=== PATIENT | male | born 1975 | race Caucasian/White ===

== ENCOUNTER 2017-10-29 11:31 | Inpatient (IN) ==
--- NOTE | 2017-10-29 11:43 | Emergency Department Note ---
Disposition Clinical Impression: Cellulitis Qualifiers: Site of cellulitis: extremity Site of cellulitis of extremity: lower extremity Laterality: left Qualified Code(s): L03.116 - Cellulitis of left lower limb Left knee pain Qualifiers: Chronicity: acute Qualified Code(s): M25.562 - Pain in left knee Disposition: Admitted As Inpatient Condition: Good Time of Disposition: 15:37 Extremity Problem HPI - General Chief complaint: ED Extremity Problem,Nontraumatic Stated complaint: Left Knee Pain Time Seen by Provider: 10/29/17 11:37 Source: patient, family Mode of arrival: ambulatory Limitations: no limitations Nursing Notes Reviewed: Yes Vital Signs Reviewed: Yes - History of Present Illness HPI Narrative: Patient is a 41-year-old male with past medical history of previous shoulder surgeries, hypertension, A. fib. She presents today due to left knee pain, left lower extremity swelling and redness. Patient states that 1-2 days ago, he started having pain in the left knee. 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 Denies any previous history of any pain in that lower extremity. Over the next 24 hours, he started having additional swelling, additional pain. She made a small incision over the swelling aspect and Monday he got blood and white fluid out that he thought was pus. After that, he has noticed additional swelling down to the calf and redness down to the calf. Denies any current calf pain. Denies any history of any DVTs. Denies any other fevers, nausea, vomiting, diarrhea, abdominal pain, chest pain, shortness of breath, stiffness of the left knee joint, numbness, tingling, weakness. Pain Scale: 10 - Related Data Home Medications Medication Instructions Recorded Confirmed Chlordiazepoxide [Librium] 5 mg PO DAILY 10/29/17 10/29/17 Lisinopril [Zestril] 20 mg PO DAILY 10/29/17 10/29/17 Allergies Allergy/AdvReac Type Severity Reaction Status Date / Time No Known Allergies Allergy Verified 10/29/17 14:57 All systems ED: reviewed and negative except as stated. Constitutional: Denies: fever Cardiovascular: Denies: chest pain Respiratory: Denies: cough, dyspnea Gastrointestinal: Denies: abdominal pain, nausea, vomiting, diarrhea Genitourinary: Denies: urgency, dysuria Musculoskeletal: Reports: arthralgia Integumentary: Reports: rash, other Neurological: Denies: headache, weakness, numbness, paresthesias Past Medical History - Past Medical History Attestation: Yes The following information was validated with the patient. Source: patient Medical history: Reports: atrial fibrillation, hypertension Psychiatric history: Reports: no psych history - Social History Smoking Status: Never smoker Smokeless Tobacco Status: No Alcohol use: Reports: none Drug use: Reports: none Physical Exam - General Limitations: no limitations General appearance: alert, in distress - Head Head exam: atraumatic, normocephalic, normal inspection - Eye Eye exam: Present: normal appearance, PERRL, EOMI - ENT ENT exam: normal exam, normal oropharynx, mucous membranes moist - Neck Neck exam: Present: normal inspection, full ROM, trachea midline - Chest Chest inspection: Present: normal inspection, symmetric chest wall rise - Respiratory Respiratory exam: Present: normal lung sounds bilaterally - Cardiovascular Cardiovascular exam: Present: regular rate, normal rhythm, normal heart sounds - Abdominal Exam Abdominal exam: Present: soft, Non-Tender. Absent: tenderness, distention, guarding, rebound, rigidity - Extremities Exam Extremities exam: Present: other (Erythema of the left anterior knee down to mid carlson, significant swelling of the infrapatellar region, small 0.5 cm scar incision just inferior to inferior aspect of the patella where patient made an incision; left foot more than right foot. +2 over 4 posterior tibial pulses bilaterally. Decreased +1 over 4 dorsalis pedis pulses bilaterally.) - Neurological Exam Neurological exam: Present: alert, oriented X3 - Psychiatric Psychiatric exam: Present: normal affect, normal mood - Skin Skin exam: Present: warm, dry Course Course Narrative: ABIs of the LE obtained due to cold left foot. These were normal bilaterally. CTA of the left lower extremity showed no definite opacification of the left dorsalis pedis artery. Cellulitis was seen extending from the left knee into the anterior mid left leg. There is no signs of any osteomyelitis or necrotizing fasciitis. Discussed these results with the patient. He was reevaluated and redness has extended down to his ankle now. We discussed the importance of starting IV antibiotics and admission for further care. He was having agreeable with this plan. Of note, patient had elevated heart rate of 140 on presentation, now in the low 100s. Fluids have been given. Blood cultures also obtained. Lower Extremity CTA 10/29/17 11:55 IMPRESSION: 1. One-vessel runoff to the left ankle with patency of the proximal to mid left plantar artery. No definite opacification of the left dorsalis pedis artery. 2. Findings suggestive of cellulitis extending from the anterior left knee into the anterior mid left leg. No findings of underlying osteomyelitis or necrotizing fasciitis. D/ / Fly Nina MD / Fly Nina MD Interpreting Provider: Fly Nina MD Vital Signs Temperature 98.4 F 10/29/17 11:34 Pulse Rate 146 10/29/17 11:34 Respiratory Rate 20 10/29/17 11:34 Blood Pressure 150/92 10/29/17 11:34 O2 Sat by Pulse Oximetry 98 10/29/17 11:34 Temperature 98.4 F 10/29/17 11:34 Pulse Rate 103 10/29/17 15:24 Respiratory Rate 20 10/29/17 15:24 Blood Pressure 145/105 10/29/17 15:24 O2 Sat by Pulse Oximetry 98 10/29/17 11:34 Oxygen Delivery Oxygen Delivery Room Air Extremity Problem, Nontraumati - MDM Narrative Medical decision making narrative: ABIs of the LE obtained due to cold left foot. These were normal bilaterally. CTA of the left lower extremity showed no definite opacification of the left dorsalis pedis artery. Cellulitis was seen extending from the left knee into the anterior mid left leg. There is no signs of any osteomyelitis or necrotizing fasciitis. Discussed these results with the patient. He was reevaluated and redness has extended down to his ankle now. We discussed the importance of starting IV antibiotics and admission for further care. He was having agreeable with this plan. Of note, patient had elevated heart rate of 140 on presentation, now in the low 100s. Fluids have been given. Blood cultures also obtained. - Medical Records Medical records reviewed: Yes I reviewed the patient's medical records. - Lab Data Lab results reviewed: Yes I reviewed the patient's lab results. Result diagrams: 10/29/17 11:58 10/29/17 11:58 Lab Results 10/29/17 10/29/1710/29/18 Range/Units 11:58 11:58 11:58 WBC 13.5 H (4.3-11.1) K/mcL RBC 4.54 (4.19-5.50) M/mcL Hgb 13.9 (12.9-16.9) g/dL Hct 39.9 (37.5-50.1) % MCV 87.9 (83.0-100.0) fL MCH 30.6 (28.0-33.3) pg MCHC 34.8 (31.6-35.5) g/dL RDW 11.9 (11.5-14.5) % Plt Count 299 (140-400) K/mcL MPV 8.9 L (9.4-12.4) fL Immature Gran % 0.5 (0-4) % Seg Neutrophils % 79.5 % Lymphocytes % 10.6 % Monocytes % 8.0 % Eosinophils % 1.0 % Basophils % 0.4 % Neutrophils # 10.7 H (1.6-8.9) K/mcL Lymphocytes # 1.4 (0.6-4.6) K/mcL Monocytes # 1.1 (0.0-1.3) K/mcL Eosinophils # 0.1 (0.0-0.6) K/mcL Basophils # 0.1 (0.0-0.2) K/mcL ESR 15 H (0-10) mm/hr Sodium 137 (136-145) mEq/L Potassium 4.2 (3.5-5.1) mEq/L Chloride 101 (98-107) mEq/L Carbon Dioxide 28 (23-29) mEq/L BUN 15 (6-20) mg/dL Creatinine 0.80 (0.70-1.30) mg/dL Est GFR ( Amer) > 60 (> 60) Est GFR (Non-Af Amer) > 60 (> 60) BUN/Creatinine Ratio 19 (6-26) Glucose 116 H (70-105) mg/dL Calculated Osmolality 286 (280-300) Lactic Acid (0.5-2.2) mmol/L Calcium 9.4 (8.6-10.3) mg/dL 10/29/17 Range/Units 11:58 WBC (4.3-11.1) K/mcL RBC (4.19-5.50) M/mcL Hgb (12.9-16.9) g/dL Hct (37.5-50.1) % MCV (83.0-100.0) fL MCH (28.0-33.3) pg MCHC (31.6-35.5) g/dL RDW (11.5-14.5) % Plt Count (140-400) K/mcL MPV (9.4-12.4) fL Immature Gran % (0-4) % Seg Neutrophils % % Lymphocytes % % Monocytes % % Eosinophils % % Basophils % % Neutrophils # (1.6-8.9) K/mcL Lymphocytes # (0.6-4.6) K/mcL Monocytes # (0.0-1.3) K/mcL Eosinophils # (0.0-0.6) K/mcL Basophils # (0.0-0.2) K/mcL ESR (0-10) mm/hr Sodium (136-145) mEq/L Potassium (3.5-5.1) mEq/L Chloride (98-107) mEq/L Carbon Dioxide (23-29) mEq/L BUN (6-20) mg/dL Creatinine (0.70-1.30) mg/dL Est GFR ( Amer) (> 60) Est GFR (Non-Af Amer) (> 60) BUN/Creatinine Ratio (6-26) Glucose (70-105) mg/dL Calculated Osmolality (280-300) Lactic Acid 1.4 (0.5-2.2) mmol/L Calcium (8.6-10.3) mg/dL - Radiology Data Radiology results reviewed: Yes I reviewed the patient's radiology results. Lower Extremity CTA 10/29/17 11:55 IMPRESSION: 1. One-vessel runoff to the left ankle with patency of the proximal to mid left plantar artery. No definite opacification of the left dorsalis pedis artery. 2. Findings suggestive of cellulitis extending from the anterior left knee into the anterior mid left leg. No findings of underlying osteomyelitis or necrotizing fasciitis. D/ / Fly Nina MD / Fly Nina MD Interpreting Provider: Fly Nina MD S.B.A.R. - [place] Situation: Demographics, MOA Background: Presenting Complaint, Relevant PMH, Meds, & Allergies Assessment: Vital Signs, Course and respsone to treatment, Exam Concerns, Patient/Family Expectation, Pertinant Lab Results Recommendation: Barrier(s) to disposition, Recommendation based on pending studies, treatments, or consults [place] Report Given to: Dr. Baltazar
[2017-10-29] MEDS ORDERED: *HR* FentaNYL (PF) 100 MCG/2 ML VIAL IVP ONE ×2 (11:55→15:02)
[2017-10-29 12:14] LABS: Basophils % 0.4 %; Hematocrit 39.9 % (37.5-50.1); Hemoglobin 13.9 g/dL (12.9-16.9); Immature Granulocytes % 0.5 % (0-4); Lymphocytes % 10.6 %; Mean Corpuscular HGB Conc 34.8 g/dL (31.6-35.5); Mean Corpuscular Hemoglobin 30.6 pg (28.0-33.3); Mean Corpuscular Volume 87.9 fL (83.0-100.0); Mean Platelet Volume 8.9 fL (9.4-12.4); Platelet Count 299 K/mcL (140-400); Red Blood Count 4.54 M/mcL (4.19-5.50); Red Cell Distribution Width 11.9 % (11.5-14.5); Segmented Neutrophils % 79.5 %
[2017-10-29 12:15] LABS: Basophils # 0.1 K/mcL (0.0-0.2); Eosinophils # 0.1 K/mcL (0.0-0.6); Lymphocytes # 1.4 K/mcL (0.6-4.6); Monocytes # 1.1 K/mcL (0.0-1.3); Neutrophils # 10.7 K/mcL (1.6-8.9)
[2017-10-29 12:37] LABS: BUN/Creatinine Ratio 19 (6-26); Blood Urea Nitrogen 15 mg/dL (6-20); Calcium 9.4 mg/dL (8.6-10.3); Carbon Dioxide 28 mEq/L (23-29); Chloride 101 mEq/L (98-107); Glucose 116 mg/dL (70-105); Osmolality,Calculated 286 (280-300); Potassium 4.2 mEq/L (3.5-5.1); Sodium 137 mEq/L (136-145); eGFR For African Americans > 60 (> 60); eGFR For Non-African Americans > 60 (> 60)
[2017-10-29] MEDS ORDERED: Tdap (Boostrix) Vaccine 0.5 ML SYRINGE IM ONE (13:33)
[2017-10-29] MEDS ORDERED: Piperacillin/Tazobactam 3.375 GM in 0.9 % Sodium Chloride Mini Bag 100 ML IVPB ONE (13:33)
--- NOTE | 2017-10-29 13:33 | Emergency Department Note ---
Disposition Clinical Impression: Cellulitis Qualifiers: Site of cellulitis: extremity Site of cellulitis of extremity: lower extremity Laterality: left Qualified Code(s): L03.116 - Cellulitis of left lower limb Disposition: Home, Self-Care Forms: ED Satisfaction Letter General Adult HPI - General Chief complaint: ED Extremity Problem,Nontraumatic Stated complaint: Left Knee Pain Time Seen by Provider: 10/29/17 11:37 Source: patient, family Mode of arrival: ambulatory Limitations: no limitations - History of Present Illness Pain Scale: 0 - Related Data Allergies Allergy/AdvReac Type Severity Reaction Status Date / Time No Known Allergies Allergy Verified 10/29/17 11:34 Past Medical History - Past Medical History Medical history: Reports: atrial fibrillation, hypertension Psychiatric history: Reports: no psych history - Social History Smoking Status: Never smoker Smokeless Tobacco Status: No Alcohol use: Reports: none Drug use: Reports: none Physical Exam - General Limitations: no limitations General appearance: alert, in distress Course Vital Signs Temperature 98.4 F 10/29/17 11:34 Pulse Rate 146 10/29/17 11:34 Respiratory Rate 20 10/29/17 11:34 Blood Pressure 150/92 10/29/17 11:34 O2 Sat by Pulse Oximetry 98 10/29/17 11:34 Temperature 98.4 F 10/29/17 11:34 Pulse Rate 108 10/29/17 13:27 Respiratory Rate 15 10/29/17 13:27 Blood Pressure 130/84 10/29/17 13:27 O2 Sat by Pulse Oximetry 98 10/29/17 11:34 Oxygen Delivery Oxygen Delivery Room Air Medical Decision Making - Lab Data Result diagrams: 10/29/17 11:58 10/29/17 11:58 Lab Results 10/29/17 10/29/17 10/29/17 Range/Units 11:58 11:58 11:58 WBC 13.5 H (4.3-11.1) K/mcL RBC 4.54 (4.19-5.50) M/mcL Hgb 13.9 (12.9-16.9) g/dL Hct 39.9 (37.5-50.1) % MCV 87.9 (83.0-100.0) fL MCH 30.6 (28.0-33.3) pg MCHC 34.8 (31.6-35.5) g/dL RDW 11.9 (11.5-14.5) % Plt Count 299 (140-400) K/mcL MPV 8.9 L (9.4-12.4) fL Immature Gran % 0.5 (0-4) % Seg Neutrophils % 79.5 % Lymphocytes % 10.6 % Monocytes % 8.0 % Eosinophils % 1.0 % Basophils % 0.4 % Neutrophils # 10.7 H (1.6-8.9) K/mcL Lymphocytes # 1.4 (0.6-4.6) K/mcL Monocytes # 1.1 (0.0-1.3) K/mcL Eosinophils # 0.1 (0.0-0.6) K/mcL Basophils # 0.1 (0.0-0.2) K/mcL ESR 15 H (0-10) mm/hr Sodium 137 (136-145) mEq/L Potassium 4.2 (3.5-5.1) mEq/L Chloride 101 (98-107) mEq/L Carbon Dioxide 28 (23-29) mEq/L BUN 15 (6-20) mg/dL Creatinine 0.80 (0.70-1.30) mg/dL Est GFR ( Amer) > 60 (> 60) Est GFR (Non-Af Amer) > 60 (> 60) BUN/Creatinine Ratio 19 (6-26) Glucose 116 H (70-105) mg/dL Calculated Osmolality 286 (280-300) Lactic Acid (0.5-2.2) mmol/L Calcium 9.4 (8.6-10.3) mg/dL 10/29/17 Range/Units 11:58 WBC (4.3-11.1) K/mcL RBC (4.19-5.50) M/mcL Hgb (12.9-16.9) g/dL Hct (37.5-50.1) % MCV (83.0-100.0) fL MCH (28.0-33.3) pg MCHC (31.6-35.5) g/dL RDW (11.5-14.5) % Plt Count (140-400) K/mcL MPV (9.4-12.4) fL Immature Gran % (0-4) % Seg Neutrophils % % Lymphocytes % % Monocytes % % Eosinophils % % Basophils % % Neutrophils # (1.6-8.9) K/mcL Lymphocytes # (0.6-4.6) K/mcL Monocytes # (0.0-1.3) K/mcL Eosinophils # (0.0-0.6) K/mcL Basophils # (0.0-0.2) K/mcL ESR (0-10) mm/hr Sodium (136-145) mEq/L Potassium (3.5-5.1) mEq/L Chloride (98-107) mEq/L Carbon Dioxide (23-29) mEq/L BUN (6-20) mg/dL Creatinine (0.70-1.30) mg/dL Est GFR ( Amer) (> 60) Est GFR (Non-Af Amer) (> 60) BUN/Creatinine Ratio (6-26) Glucose (70-105) mg/dL Calculated Osmolality (280-300) Lactic Acid 1.4 (0.5-2.2) mmol/L Calcium (8.6-10.3) mg/dL Attestation Statement - Attestation Attestation: I examined this patient and my medical decision-making was reviewed with the Resident Physician. I agree with the documented findings, disposition and treatment plan as described except to the extent set forth below. 41 year old male presents to the ED with coplaints of LLE cellultis. He comes from urgent care and state that he had an abscess area that he lanced with a knife (up to date on tdap) and in the past 24 horus has noticed incresed swelling and redness streaking down his leg. Concerns for cellutlis. ABIs are normal. We will continue wit CTA of the leg and likely admit to medicine for RLE cellulitis. vanc/zosyn for therapy
[2017-10-29] MEDS ORDERED: 0.9 % Sodium Chloride 1,000 ML IVC SCH ×2 (15:15→18:00)
[2017-10-29 17:43] LABS: C-Reactive Protein 14 mg/L (Less than 10)
[2017-10-29] MEDS ORDERED: Naloxone 0.4 MG/ML INJ IVP PRN (17:53)
--- NOTE | 2017-10-29 18:03 | Internal Med History&Physical ---
Date of Encounter: 10/29/17 Time of Encounter: 17:58 Internal Medicine - H&P: HPI Chief complaint: left knee pain Admitted From: Emergency Dept Plans for Post Hospital Care: Home History of present illness: Mr. Mcknight is a 41 year old male hypertension, atrial fibrillation and multiple surgeries for the shoulder in the past. Patient came to emergency room for persistent left knee pain. Patient claims that this is ongoing left-sided knee pain for more than 48 hours. Patient also has bruises and swelling in the same area. In last 24 hours patient's pain has significantly worsened. This was the reason they came to emergency room for further evaluation. Patient denies chest pain, shortness of breath, nausea, vomiting, dizziness and diarrhea. Workup in the emergency room: Patient was evaluated in the emergency room. Baseline labs were drawn. Noted presence of a leukocytosis. Lower extremity CTA was done. No arterial occlusion. But there is a extensive cellulitis noted. No evidence of osteomyelitis/necrotizing fasciitis. Reason for admission: Outpatient failed treatment of cellulitis. Need Intravenous antibiotics. Family history: Noncontributory. Past Med Surg Social Fam HX - Past Medical History Medical history: atrial fibrillation, hypertension Psychiatric history: no psych history - Social History Smoking Status: Never smoker Smokeless Tobacco Status: No Alcohol use: none Drug use: none Internal Medicine - H&P: Meds Chlordiazepoxide [Librium] 5 mg PO DAILY 10/29/17 [History] Lisinopril [Zestril] 20 mg PO DAILY 10/29/17 [History] 3 Allergy/AdvReac Type Severity Reaction Status Date / Time No Known Allergies Allergy Verified 10/29/17 14:57 All Systems PM: A 10-system review of systems was performed and is negative for pertinent findings except as documented above in the HPI. - Constitutional Constitutional: no chills, no fever(s), no night sweats - EENT Eyes: no change in vision, no discharge, no pain, no photophobia Ears: no ear discharge, no ear pain, no tinnitus Nose, mouth and throat: no dysphagia, no nasal discharge, no neck pain, no sore throat - Cardiovascular Cardiovascular ROS IM: no chest pain, no diaphoresis, no dyspnea, no lightheadedness, no palpitations, no syncope - Respiratory Respiratory: no cough, no dyspnea, no wheezing, no excessive phlegm production - Gastrointestinal Gastrointestinal: no abdominal pain, no diarrhea, no hematemesis, no hematochezia, no melena, no nausea, no vomiting - Musculoskeletal Musculoskeletal ROS IM: muscle cramps, no numbness, no tingling Additional comments: Left lower extremity pain/cellulitis - Integumentary Integumentary IM: no rash, no unusual bruising - Neurological Neurological ROS: no confusion, no convulsions, no focal weakness, no numbness, no tingling, no tremor(s) - Hematologic/Lymphatic Hematologic/Lymphatic: no easy bruising - Constitutional Vitals: Temp Pulse Resp BP Pulse Ox 98.3 F 100 16 163/92 96 10/29/17 17:50 10/29/17 17:50 10/29/17 17:50 10/29/17 17:50 10/29/17 17:50 General appearance: Present: A&O X 3, morbidly obese, pleasant, no acute distress, answers questions appropriately - Head Head exam: Present: atraumatic, normocephalic - Eye Eye exam: Present: PERRL, conjuntiva pink, sclera anicteric Pupils: Present: PERRL - Neck Neck exam general surgery: Present: supple, trachea midline. Absent: lymphadenopathy - Respiratory Respiratory exam: Present: CTAB. Absent: accessory muscle use, rales, rhonchi, wheezes - Cardiovascular Cardiovascular exam: Present: RRR, +S1, +S2. Absent: diastolic murmur, gallop, rubs, systolic murmur - GI/Abdominal GI/Abdominal exam: Present: normal bowel sounds, soft, no peritoneal signs. Absent: distended, tenderness - Extremities Exam Extremities exam: Present: warm, radial pulses palpable and symmetrical. Absent : calf tenderness, cyanotic, pedal edema Additional comments: Patient does have a swollen left lower extremity. Noted that patient has a extreme tenderness, left lower extremity. CTA left lower extremity: Negative. - Neurological Exam Neurological exam: Present: CN II-XII intact, oriented X3, no focal deficits. Absent: pronater drift, facial droop, speech deficit - Skin Skin exam: Present: dry, intact Internal Med - H&P Results - Labs CBC & Chem 7: 10/29/17 11:58 10/29/17 11:58 - Assessment and plan (1) Cellulitis Current Visit: Yes Status: Acute Assessment and plan: 41/male Left-sided knee pain. Noted cellulitis. Left CTA lower extremity: Suggestive for cellulitis. Plan: Admit as inpatient. Vancomycin/Zosyn. Resume home medication. Elevation of the leg. I examined this patient in the emergency department room #2. Patient's was at bedside. Plan of care explained to the patient and his . The verbalize understanding. Qualifiers: Site of cellulitis: extremity Site of cellulitis of extremity: lower extremity Laterality: left Qualified Code(s): L03.116 - Cellulitis of left lower limb (2) Left knee pain Current Visit: Yes Status: Acute Assessment and plan: Patient does have a left acute knee pain. Please see above Qualifiers: Chronicity: acute Qualified Code(s): M25.562 - Pain in left knee (3) Hypertension Current Visit: Yes Status: Acute Assessment and plan: Patient is known to have essential hypertension. We will resume home medication. We will monitor blood pressure during this hospitalization. Qualifiers: Hypertension type: essential hypertension Qualified Code(s): I10 - Essential (primary) hypertension (4) DVT prophylaxis Current Visit: Yes Status: Acute Assessment and plan: Heparin Medical decision making: This patient has a moderate to severe risk of worsening in spite of being on appropriate medication due to the underlying chronic comorbid conditions. - Time Spent With Patient Total time spent is greater than 50% in coordination of care (as documented) at patient's floor/unit and/or counseling patient:
[2017-10-29] MEDS ORDERED: 0.9 % Sodium Chloride 1,000 ML ONE (18:06)
[2017-10-29] MEDS: *HR* HYDROcodone/Acet 5/325 mg TABLET PO PRN (20:10)
[2017-10-29] MEDS ORDERED: Melatonin 3 MG TABLET PO PRN (20:21)
[2017-10-30] MEDS: Piperacillin/Tazobactam 3.375 GM in 0.9 % Sodium Chloride Mini Bag 100 ML IVPB SCH ×2 (00:13→08:23)
[2017-10-30] MEDS: *HR* Heparin 5,000 UNIT/ML VIAL SQ SCH ×2 (00:13→08:22)
[2017-10-30 01:14] LABS: Basophils # 0.1 K/mcL (0.0-0.2); Basophils % 0.5 %; Eosinophils # 0.3 K/mcL (0.0-0.6); Eosinophils % 2.8 %; Hematocrit 35.5 % (37.5-50.1); Hemoglobin 12.4 g/dL (12.9-16.9); Immature Granulocytes % 0.4 % (0-4); Lymphocytes # 2.5 K/mcL (0.6-4.6); Lymphocytes % 26.4 %; Mean Corpuscular HGB Conc 34.9 g/dL (31.6-35.5); Mean Corpuscular Hemoglobin 30.9 pg (28.0-33.3); Mean Corpuscular Volume 88.5 fL (83.0-100.0); Mean Platelet Volume 9.1 fL (9.4-12.4); Monocytes # 0.9 K/mcL (0.0-1.3); Monocytes % 9.3 %; Neutrophils # 5.8 K/mcL (1.6-8.9); Platelet Count 266 K/mcL (140-400); Red Blood Count 4.01 M/mcL (4.19-5.50); Red Cell Distribution Width 11.9 % (11.5-14.5); Segmented Neutrophils % 60.6 %
[2017-10-30 01:19] LABS: Prothrombin Time 10.6 Seconds (9.4-12.1)
[2017-10-30 01:22] LABS: Activated Partial Thrombo Time 31.9 Seconds (26.0-36.0)
[2017-10-30 01:35] LABS: Alanine Aminotransferase 17 Units/L (7-52); Albumin 3.9 g/dL (3.5-5.7); Albumin/Globulin Ratio 1.6 (1.1-2.2); Alkaline Phosphatase 79 Units/L (34-104); Aspartate Amino Transferase 16 Units/L (13-39); BUN/Creatinine Ratio 17 (6-26); Bilirubin,Total 0.4 mg/dL (0.3-1.0); Blood Urea Nitrogen 13 mg/dL (6-20); Calcium 8.8 mg/dL (8.6-10.3); Carbon Dioxide 26 mEq/L (23-29); Chloride 106 mEq/L (98-107); Chol/HDL Ratio 1.8 (0-4.9); Cholesterol 167 mg/dL (< 200); Globulin 2.4 g/dL (2.4-3.5); Glucose 92 mg/dL (70-105); HDL Cholesterol 95 mg/dL (40-59); LDL Cholesterol,Calculated 61 mg/dL (0-99); Magnesium 2.1 mg/dL (1.6-2.6); Osmolality,Calculated 286 (280-300); Potassium 4.1 mEq/L (3.5-5.1); Sodium 138 mEq/L (136-145); Total Protein 6.3 g/dL (6.4-8.9); Triglycerides 57 mg/dL (< 150); eGFR For African Americans > 60 (> 60); eGFR For Non-African Americans > 60 (> 60)
[2017-10-30] MEDS: *HR* HYDROcodone/Acet 5/325 mg TABLET PO PRN ×2 (02:19→08:21)
[2017-10-30] MEDS ORDERED: Lisinopril 20 MG TABLET PO SCH (09:00)
[2017-10-30] MEDS ORDERED: traMADol 50 MG TABLET PO PRN (09:32)
[2017-10-30 11:12] VITALS: BP 133/88
--- NOTE | 2017-10-30 11:22 | Discharge Summary ---
Orders not resulted at time of discharge: Pending orders 10/29/17 18:10 EV venous imaging LE LT Routine Date of Encounter: 10/30/17 Time of Encounter: 11:15 - Discharge Diagnosis (1) Cellulitis Priority: Primary Status: Acute Assessment and Plan: 41/male presenting with left sided knee pain and left lower extremity redness. He was assessed with cellulitis. he was started aon vancomycin and zosyn and began to show some improvement. TThe next day patient still had some redness and warmth which showed improvement. The next morning he said he had to go back to work. he was counseled to stay for IV antibiotics but declined and insisted on leaving. He was counseled regarding the risks and benefits of completeing his hospital course but signed out AMA. He was given a prescription for clindamycin Qualifiers: Site of cellulitis: extremity Site of cellulitis of extremity: lower extremity Laterality: left Qualified Code(s): L03.116 - Cellulitis of left lower limb (2) Left knee pain Priority: Secondary Status: Acute Assessment and Plan: Patient does have a left acute knee pain. Please see above Qualifiers: Chronicity: acute Qualified Code(s): M25.562 - Pain in left knee (3) Hypertension Priority: Secondary Status: Acute Assessment and Plan: Patient is known to have essential hypertension. We will resume home medication. We will monitor blood pressure during this hospitalization. Qualifiers: Hypertension type: essential hypertension Qualified Code(s): I10 - Essential (primary) hypertension (4) DVT prophylaxis Priority: Secondary Status: Acute Assessment and Plan: Heparin Medical decision making: This patient has a moderate to severe risk of worsening in spite of being on appropriate medication due to the underlying chronic comorbid conditions. Hospital course: Mr. Mcknight is a 41 year old male - Time Spent with Patient Total time spent providing and/or coordinating discharge services: - Discharge Medications Prescriptions: Clindamycin HCl 300 mg PO TID 5 Days #15 capsule Home Medications: Chlordiazepoxide [Librium] 5 mg PO DAILY 10/29/17 [History] Lisinopril [Zestril] 20 mg PO DAILY 10/29/17 [History] Clindamycin HCl 300 mg PO TID 5 Days #15 capsule 10/30/17 [Rx] Allergies/Adverse Reactions: 3 Allergy/AdvReac Type Severity Reaction Status Date / Time No Known Allergies Allergy Verified 10/29/17 14:57 Date of admission: 10/29/17 17:53 Primary care physician: Jim Mcknight DO - Constitutional Vitals: Temp Pulse Resp BP Pulse Ox 98.1 F 60 18 133/88 96 10/30/17 11:11 10/30/17 11:11 10/30/17 11:11 10/30/17 11:11 10/30/17 11:11 General appearance: Present: A&O X 3, morbidly obese, pleasant, no acute distress, answers questions appropriately - Patient Status Disposition: Left Against Medical Advice Condition: Good - Discharge Instructions Follow Up With: Nila Rg DO [Family Provider] - Jim Mcknight DO [Primary Care Provider] -
[2017-10-30] MEDS ORDERED: Aminoglycoside Consult 1 EACH MC ONE (11:44)
== END 2017-10-30 11:45 | disposition left against medical advice (07) | DRG 603 ==
LOC: 3NENU 11:31 → EMEROO 11:31 → 3NENU 17:44
PROVIDERS: ADMIT Hospitalist; ATTEND Hospitalist